=== PATIENT | male | born 1960 | race Caucasian/White ===

== ENCOUNTER 2020-11-19 11:40 | Observation (INO) | payer OTHER ==
[~2020-11-19] VITALS: Ht 182.9 cm; Wt 96.7 kg
[2020-11-19 12:21] LABS: BASOPHILS ABSOLUTE AUTO 0.08 K/mm3 (0.00-0.23); BASOPHILS PERCENT AUTO 1 % (0-2); EOSINOPHILS ABSOLUTE AUTO 0.12 K/mm3 (0.00-0.68); EOSINOPHILS PERCENT AUTO 1 % (0-6); Hematocrit 50.6 % (37.0-53.0); Hemoglobin 16.7 g/dL (13.5-17.5); IMMATURE GRAN ABSOLUTE AUTO 0.01 K/mm3 (0.00-0.10); IMMATURE GRAN PERCENT AUTO 0 % (0-1); LYMPHOCYTES ABSOLUTE AUTO 2.45 K/mm3 (0.84-5.20); LYMPHOCYTES PERCENT AUTO 29 % (21-46); MONOCYTES ABSOLUTE AUTO 0.65 K/mm3 (0.16-1.47); MONOCYTES PERCENT AUTO 8 % (4-13); Mean Corpuscular HGB 31.1 pg (26.0-34.0); Mean Corpuscular Volume 94 fL (80-100); Mean Platelet Volume 11.4 fL (9.1-12.4); NEUTROPHILS ABSOLUTE AUTO 5.04 K/mm3 (1.96-9.15); NEUTROPHILS PERCENT AUTO 60 % (41-73); Platelet Count 154 K/mm3 (150-400); RDW Coefficient Variation 13.1 % (11.7-14.2); RDW Standard Deviation 45.1 fL (35.1-46.3); Red Blood Cell Count 5.37 M/mm3 (4.30-5.90); White Blood Cell Count 8.35 K/mm3 (4.00-11.30)
[2020-11-19 12:40] LABS: Alanine Aminotransfer (ALT/SGP 24 U/L (12-78); Albumin, Blood 3.6 g/dL (3.4-5.0); Albumin/Globulin Ratio 0.9 (0.8-1.8); Alk Phos 101 U/L (50-136); Anion Gap 3 mmol/L (6-16); Aspartate Aminotrans (AST/SGOT 12 U/L (12-37); Bilirubin, Total 0.7 mg/dL (0.1-1.0); Blood Urea Nitrogen 12 mg/dL (8-24); Bun/Creatinine Ratio 9.6 (12.0-20.0); CO2, Blood 32 mmol/L (21-32); Calcium, Blood 9.3 mg/dL (8.5-10.1); Chloride, Blood 105 mmol/L (98-108); Creatinine, Blood 1.25 mg/dL (0.60-1.20); Globulin, Blood 4.1 g/dL (2.2-4.0); Glomerular Filtration Rate >60 (60-); Glucose, Blood 122 mg/dL (70-99); Potassium, Blood 3.7 mmol/L (3.5-5.5); Sodium, Blood 140 mmol/L (136-145); Total Protein, Blood 7.7 g/dL (6.4-8.2)
[2020-11-19 13:10] LABS: Prothrombin Time Results 10.8 Sec (9.7-11.5)
--- NOTE | 2020-11-19 19:22 | NUR ---
a+o, not appropriatly placed in back room but very nice to work with, bp very high but pt states it is where he expects it to be, dr aware and working with pt to develop a plan, call light in reach, no acute changes noted during shift
--- NOTE | 2020-11-19 21:59 | NUR ---
BP: 176/106 AND IV APRESOLINE 10 MG GIVEN FOR SBP >170 PER EMAR BP: 149/84 ON RECHECK
--- NOTE | 2020-11-20 03:23 | NUR ---
SHIFT SUMMARY PATIENT HAD NO ACUTE CHANGES OBSERVED. ONE ASSIST W/FWW TO BATHROOM WITH RIGHT SIDE WEAKNESS. CALL CENTER RN STRONG AND EQUAL. PEDAL PUSH STRONG ON LEFT LEG AND WEAKER ON RIGHT LEG SIDE. PUPILS EQUAL AND REACTIVE. BP ELEVATED 175/106 AND IV APRESOLINE 10 MG GIVEN PER EMAR FOR SBP >170. BP RECHECK: 149/84. DENIES CHEST PAIN, SOB, AND N/V. PIV REMAINS INTACT. WATCHED TV FIRST PART OF SHIFT. COOPERATIVE WITH CARE. CALL LIGHT IN REACH. BED IN LOWEST POSITION. WILL CONTINUE TO MONITOR UNTIL DAY SHIFT NURSE ASSUMES CARE.
[2020-11-20 06:43] LABS: Anion Gap 4 mmol/L (6-16); Blood Urea Nitrogen 16 mg/dL (8-24); Bun/Creatinine Ratio 13.1 (12.0-20.0); CO2, Blood 30 mmol/L (21-32); Chloride, Blood 108 mmol/L (98-108); Cholesterol 133 mg/dL (50-200); Creatinine, Blood 1.22 mg/dL (0.60-1.20); Glomerular Filtration Rate >60 (60-); Glucose, Blood 109 mg/dL (70-99); HDL Cholesterol 33 mg/dL (>39); LDL/HDL RATIO 2.4; Low Density Lipoprotein Chol 79 mg/dL (0-110); Potassium, Blood 3.7 mmol/L (3.5-5.5); Sodium, Blood 142 mmol/L (136-145); Triglycerides 107 mg/dL (30-160); Very Low Density Lipoprot Chol 21 mg/dL (6-32)
--- NOTE | 2020-11-20 13:07 | NUR ---
Echocardiogram using 9.0ml of agitated saline contrast performed.
[2020-11-20] MEDS ORDERED: CLOP75 PO (14:05)
[2020-11-20] MEDS ORDERED: ASPI81CH PO (14:05)
[2020-11-20] MEDS ORDERED: ATOR80 PO (14:05)
[2020-11-20] MEDS ORDERED: LISI20 PO (14:06)
[2020-11-20] MEDS ORDERED: NICO2 PO (14:06)
[2020-11-20] MEDS ORDERED: MELATONIN5 M1 PO (14:06)
[2020-11-20] MEDS ORDERED: NICO21TP TOP (14:07)
--- NOTE | 2020-11-20 15:45 | NUR ---
DISCHARGE SUMMARY IRLANDA LEFT WITH HIS GIRLFRIEND. THOROUGH EDUCATION WAS DONE ON STROKE PREVENTION AND S/S. PIV REMOVED, RX FAXED TO [facility]. INFO GIVEN ON [facility] PCP OFFICE FOR HIM TO ESTABLISH CARE. PT DECLINED WALKER/CANE PRESCRIPTION. WALKING IN ROOM WITH SBA, DECLINES WALKER OR CANE HERE ALSO. R SIDE HAS SOME RESIDUAL WEAKNESS BUT SENSATION IS INTACT. DENIED PAIN. PT WHEELED OUT BY BY STAFF
== END 2020-11-20 15:30 | disposition home or self-care (01) ==
LOC: ER 11:40 → MEDS 11:41
PROVIDERS: Family Medicine; Physician Assistant; ADMIT Internal Medicine
DX: I63.81 Other cerebral infarction due to occlusion or stenosis of small artery (principal); G81.91 Hemiplegia, unspecified affecting right dominant side; I10 Essential (primary) hypertension; F17.210 Nicotine dependence, cigarettes, uncomplicated; J44.9 Chronic obstructive pulmonary disease, unspecified; Z79.82 Long term (current) use of aspirin
CPT/HCPCS: 36415; 70450; 71045; 80048; 80053; 80061; 82947; 85025; 85610; 93005; 93010; 93306; 93880; 94760; 96372; 96374; 97112; 97162; 99285-25; 99406; A9270; G0378; J0360; J1650

== ENCOUNTER → 2021-09-19 | Outpatient (CLI) | payer OTHER ==
[~2021-09-19] MED LIST: ASPI81CH PO; ATOR80 PO; CLOP75 PO; LISI20 PO; MELATONIN5 M1 PO; NICO2 PO; NICO21TP TOP
== END | disposition home or self-care (01) ==
LOC: LAB SHORT 16:17
PROVIDERS: Nurse Practitioner Family
DX: N52.9 Male erectile dysfunction, unspecified (principal); R73.9 Hyperglycemia, unspecified
CPT/HCPCS: 83036; G0103

== ENCOUNTER 2021-10-03 03:30 | Inpatient (IN) | payer OTHER ==
[~2021-10-03] VITALS: Ht 182.9 cm; Wt 100.1 kg
[2021-10-03 03:55] LABS: BASOPHILS ABSOLUTE AUTO 0.09 K/mm3 (0.00-0.23); BASOPHILS PERCENT AUTO 1 % (0-2); EOSINOPHILS ABSOLUTE AUTO 0.15 K/mm3 (0.00-0.68); EOSINOPHILS PERCENT AUTO 2 % (0-6); Hematocrit 43.6 % (37.0-53.0); Hemoglobin 14.8 g/dL (13.5-17.5); IMMATURE GRAN ABSOLUTE AUTO 0.02 K/mm3 (0.00-0.10); IMMATURE GRAN PERCENT AUTO 0 % (0-1); LYMPHOCYTES ABSOLUTE AUTO 3.45 K/mm3 (0.84-5.20); LYMPHOCYTES PERCENT AUTO 34 % (21-46); MONOCYTES ABSOLUTE AUTO 0.64 K/mm3 (0.16-1.47); MONOCYTES PERCENT AUTO 6 % (4-13); Mean Corpuscular HGB 30.1 pg (26.0-34.0); Mean Corpuscular HGB Conc 33.9 g/dL (31.5-36.5); Mean Corpuscular Volume 89 fL (80-100); Mean Platelet Volume 11.4 fL (9.1-12.4); NEUTROPHILS ABSOLUTE AUTO 5.91 K/mm3 (1.96-9.15); NEUTROPHILS PERCENT AUTO 58 % (41-73); Platelet Count 169 K/mm3 (150-400); RDW Coefficient Variation 13.3 % (11.7-14.2); RDW Standard Deviation 43.6 fL (35.1-46.3); Red Blood Cell Count 4.92 M/mm3 (4.30-5.90); White Blood Cell Count 10.26 K/mm3 (4.00-11.30)
[2021-10-03 04:08] LABS: Alanine Aminotransfer (ALT/SGP 24 U/L (12-78); Albumin, Blood 3.6 g/dL (3.4-5.0); Alk Phos 68 U/L (50-136); Anion Gap 7 mmol/L (6-16); Aspartate Aminotrans (AST/SGOT 19 U/L (12-37); Bilirubin, Total 0.3 mg/dL (0.1-1.0); Blood Urea Nitrogen 14 mg/dL (8-24); Bun/Creatinine Ratio 12.8 (12.0-20.0); CHOL/HDL RATIO 4.5; CO2, Blood 29 mmol/L (21-32); Chloride, Blood 105 mmol/L (98-108); Cholesterol 145 mg/dL (50-200); Creatinine, Blood 1.09 mg/dL (0.60-1.20); Globulin, Blood 3.5 g/dL (2.2-4.0); Glomerular Filtration Rate >60 (60-); Glucose, Blood 143 mg/dL (70-99); HDL Cholesterol 32 mg/dL (>39); LDL/HDL RATIO 2.6; Low Density Lipoprotein Chol 82 mg/dL (0-110); Magnesium, Blood 2.1 mg/dL (1.6-2.4); Potassium, Blood 3.4 mmol/L (3.5-5.5); Sodium, Blood 141 mmol/L (136-145); Total Protein, Blood 7.1 g/dL (6.4-8.2); Triglycerides 154 mg/dL (30-160); Very Low Density Lipoprot Chol 30 mg/dL (6-32)
[2021-10-03] MEDS ORDERED: ASPIR 8181 M1 PO (04:13)
[2021-10-03] MEDS ORDERED: TADA10TA (06:37)
--- NOTE | 2021-10-03 07:25 | NUR ---
SUMMARY. 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 PT C/O MILD NAUSEA, ORDER OBTAINED FROM DR. VERGARA FOR ZOFRAN PRN, NONE GIVEN. VS STABLE. LUNGS CLEAR IN ALL BROUSSARD, BREATHING EVEN AND UNLABORED. CV SINUS/SINUS NIKKI, PULSES PRESENT AND EQUAL, PT DENIES ANY CHEST PAIN. ABDOMEN SOFT/NONTENDER. PT HAS R/ANGIO-SEAL AT GROIN ACCESS SITE FROM DIELECTRIC TESTING MACHINE OPERATOR, NO BLEEDING/SWELLING NOTED. NO ACUTE NEEDS NOTED. DR. GILL STATED NO NITRO FOR 72 HOURS DUE TO PT TAKING CIALIS LAST NIGHT, NURSE NOTIFY PUT IN CHART. STAT EKG DONE POST PROCEDURE. NO ACUTE NEEDS, REPORT GIVEN TO DAYSHIFT RN.
--- NOTE | 2021-10-03 08:00 | NUR ---
ASSUMED CARE OF PT PT RESTING ON BED, S/P ANGIO W/ STENT PLACEMENT W/ R. GROIN ACCESS ANGIOSEAL. GROIN IS SOFT W/ SMALL LUMP AT INSERTION SITE. STABLE ON HANDOFF. PT DENIES ANY CHEST PAIN. SINUS NIKKI ON THE MONITOR. VITALS STABLE. CARE PLAN DISCUSSED WITH PT. ALL QUESTIONS ANSWERED. CALL LIGHT IN REACH.
--- NOTE | 2021-10-03 11:58 | NUR ---
REASSESSMENT PT STOOD AT BEDSIDE WITH NO ASSISTANCE. DENIES ANY CHEST PAIN. RIGHT GROIN ACCESS REMAINS STABLE. NO ACUTE CHANGES FROM PREVIOUS ASSESSMENT. SINUS NIKKI ON MONITOR WHEN PT IS SLEEPING, SINUS RHYTHM WHEN AWAKE. VITALS REMAIN STABLE.
[2021-10-03] MEDS ORDERED: AMLODIPINE BESY10 MG PO (15:06)
[2021-10-03] MEDS ORDERED: OMEP20ER PO (15:07)
[2021-10-03] MEDS ORDERED: LOSA50 PO (15:07)
[2021-10-03] MEDS ORDERED: HYDCHL25 PO (15:07)
--- NOTE | 2021-10-03 16:17 | NUR ---
REASSESSMENT PT BP'S HAS BEEN TRENDING UPWARDS. DISCUSSED CARE WITH DR. KENDALL MEDChaim RESTARTED AND PRN MEDICATION AVAILABLE NOW. PT CONTINUES TO DENY ANY CHEST PAIN. ABLE TO REPOSITION SELF. SINUS NIKKI ON THE MONITOR. OTHER VITALS REMAIN STABLE. PT WAS STATUS CHANGED TO PCU. CALL LIGHT REMAINS IN REACH OF PT.
--- NOTE | 2021-10-03 18:43 | NUR ---
SHIFT SUMMARY PT ALERT AND ORIENTED x4, CALM AND COOPERATIVE. PT HAS DENIED CHEST PAIN ALL DAY. RIGHT GROIN SITE STABLE WITH NO CHANGES. ANGIOSEAL CLOSURE. PT AMBULATED IN ROOM WITH NO DIFFICULTIES TODAY. BP STARTED TO TREND UPWARDS, BUT DID IMPROVE. HOME MEDS WERE STARTED BY . MONITOR HAS SHOWN SINUS NIKKI, OTHER VITALS HAVE REMAINED STABLE. PT WAS MADE PCU STATUS THIS AFTERNOON.
[2021-10-04 03:35] LABS: Hematocrit 40.6 % (37.0-53.0); Hemoglobin 13.5 g/dL (13.5-17.5); Mean Corpuscular HGB 29.9 pg (26.0-34.0); Mean Corpuscular HGB Conc 33.3 g/dL (31.5-36.5); Mean Corpuscular Volume 90 fL (80-100); Mean Platelet Volume 10.8 fL (9.1-12.4); Platelet Count 146 K/mm3 (150-400); RDW Coefficient Variation 13.6 % (11.7-14.2); RDW Standard Deviation 45.1 fL (35.1-46.3); Red Blood Cell Count 4.52 M/mm3 (4.30-5.90); White Blood Cell Count 7.55 K/mm3 (4.00-11.30)
[2021-10-04 03:53] LABS: Anion Gap 8 mmol/L (6-16); Blood Urea Nitrogen 15 mg/dL (8-24); Bun/Creatinine Ratio 15.2 (12.0-20.0); CHOL/HDL RATIO 4.2; CO2, Blood 25 mmol/L (21-32); Calcium, Blood 8.4 mg/dL (8.5-10.1); Chloride, Blood 108 mmol/L (98-108); Cholesterol 130 mg/dL (50-200); Creatinine, Blood 0.99 mg/dL (0.60-1.20); Glomerular Filtration Rate >60 (60-); Glucose, Blood 107 mg/dL (70-99); HDL Cholesterol 31 mg/dL (>39); LDL/HDL RATIO 2.4; Low Density Lipoprotein Chol 74 mg/dL (0-110); Potassium, Blood 3.4 mmol/L (3.5-5.5); Sodium, Blood 141 mmol/L (136-145); Triglycerides 125 mg/dL (30-160); Very Low Density Lipoprot Chol 25 mg/dL (6-32)
--- NOTE | 2021-10-04 06:48 | NUR ---
NO ACUTE EVENTS OVERNIGHT. PT DENIED CHEST PAIN OR PRESSURE THROUGHOUT THE SHIFT. RIGHT FEMORAL ACCESS SITE SOFT, NO HEMATOMA, STRONG PULSE, DISTAL PULSES AND SENSATION INTACT. PT COMPLAINS OF SLIGHT SORENESS AT SITE WITH COUGH. EDUCATON PROVIDED REGARDINGM THE FOLLOWIN) LIMB & ACTIVITY RESTICTIONS POST HEART CATHETERIZATION. 2) NEW MEDICATIONS AND IMPORTANCE OF COMPLIANCE WITH SAID MEDICATIONS. 3) CARDIAC RISK FACTORS 4) RISKS ASSOCIATED WITH HYPERTENSION PT UP INDEPENDENTLY IN THE ROOM. RESPOSITIONS SELF IN BED. VOIDING URINE. BOWEL MOVEMENTS x 2 OVERNIGHT.
--- NOTE | 2021-10-04 07:51 | NUR ---
BEGINNING OF SHIFT Assumed care of pt at 0700. Report received from Nahomy GIFFORD. Pt A&O x 4. Answers questions. Follows commands. Verbalizes needs. Pleasant and cooperative with care. SpO2 90% or greater room air. SB per monitor, rate 51. BP stable. Right femoral artery access site covered with tegaderm. Per report pt has angioseal. Color, sensation, pulses, capillary refill equal BLE.
[2021-10-04] MEDS ORDERED: Nitrostat0.3 MG SL (12:29)
--- NOTE | 2021-10-04 14:05 | NUR ---
Pt discharged from unit at 1310. Medications faxed to [facility] pharmacy in [facility] per pt request. Educated pt on medications and angiogram site care. Pt has stent card. Educated on daily weights and heart healthy diet. Also provided tobacco cessation information. Pt verbalizes understanding of education provided. IV access removed. Pt escorted to patient entrance accompanied by this RN.
== END 2021-10-04 13:33 | disposition home or self-care (01) | DRG 247 ==
LOC: ER 03:30 → ICUE 03:36 → ICUW 03:36 → ICUE 04:43
PROVIDERS: Student in an Organized Health Care Education/Training Program; ADMIT Internal Medicine Cardiovascular Disease
PROC: 027034Z Dilation of Coronary Artery, One Artery with Drug-eluting Intraluminal Device, Percutaneous Approach (ICD-10-PCS; principal; 2021-10-03)
PROC: B2151ZZ Fluoroscopy of Left Heart using Low Osmolar Contrast (ICD-10-PCS; 2021-10-03)
PROC: B2111ZZ Fluoroscopy of Multiple Coronary Arteries using Low Osmolar Contrast (ICD-10-PCS; 2021-10-03)
PROC: 4A023N7 Measurement of Cardiac Sampling and Pressure, Left Heart, Percutaneous Approach (ICD-10-PCS; 2021-10-03)
DX: I21.19 ST elevation (STEMI) myocardial infarction involving other coronary artery of inferior wall (principal); I10 Essential (primary) hypertension; F17.210 Nicotine dependence, cigarettes, uncomplicated; R73.03 Prediabetes; Z86.73 Personal history of transient ischemic attack (TIA), and cerebral infarction without residual deficits; Z88.0 Allergy status to penicillin; Z79.02 Long term (current) use of antithrombotics/antiplatelets; Z79.82 Long term (current) use of aspirin
CPT/HCPCS: 36415; 71045; 80048; 80053; 80061; 83735; 84484; 85025; 85027; 85347; 93005; 93010; 93306; 93458; 96374; 99152; 99153; 99285-25; A9270; C1725; C1760; C1769; C1874; C1887; C1894; C9606; J0360; J0461; J1644; J2250; J3010; J7030; J7040; Q9967

== ENCOUNTER → 2022-08-07 | Outpatient (CLI) | payer OTHER ==
[~2022-08-07] MED LIST changes: +AMLODIPINE BESY10 MG PO; +ASPIR 8181 M1 PO; +HYDCHL25 PO; +LOSA50 PO; +Nitrostat0.3 MG SL; +OMEP20ER PO; +TADA10TA
[2022-08-07 16:38] LABS: BASOPHILS PERCENT AUTO 2 % (0-2); EOSINOPHILS ABSOLUTE AUTO 0.21 K/mm3 (0.00-0.68); EOSINOPHILS PERCENT AUTO 3 % (0-6); Hematocrit 46.1 % (37.0-53.0); Hemoglobin 15.2 g/dL (13.5-17.5); IMMATURE GRAN ABSOLUTE AUTO 0.01 K/mm3 (0.00-0.10); IMMATURE GRAN PERCENT AUTO 0 % (0-1); LYMPHOCYTES PERCENT AUTO 37 % (21-46); MONOCYTES ABSOLUTE AUTO 0.61 K/mm3 (0.16-1.47); MONOCYTES PERCENT AUTO 9 % (4-13); Mean Corpuscular HGB 29.9 pg (26.0-34.0); Mean Corpuscular Volume 91 fL (80-100); Mean Platelet Volume 11.9 fL (9.1-12.4); NEUTROPHILS ABSOLUTE AUTO 3.32 K/mm3 (1.96-9.15); NEUTROPHILS PERCENT AUTO 49 % (41-73); Platelet Count 134 K/mm3 (150-400); RDW Coefficient Variation 13.2 % (11.7-14.2); RDW Standard Deviation 44.9 fL (35.1-46.3); Red Blood Cell Count 5.09 M/mm3 (4.30-5.90); White Blood Cell Count 6.75 K/mm3 (4.00-11.30)
[2022-08-07 18:46] LABS: Alanine Aminotransfer (ALT/SGP 25 U/L (12-78); Albumin, Blood 3.5 g/dL (3.4-5.0); Albumin/Globulin Ratio 1.1 (0.8-1.8); Alk Phos 78 U/L (50-136); Anion Gap 2 mmol/L (6-16); Aspartate Aminotrans (AST/SGOT 12 U/L (12-37); Bilirubin, Total 0.6 mg/dL (0.1-1.0); Blood Urea Nitrogen 20 mg/dL (8-24); CHOL/HDL RATIO 2.6; CO2, Blood 32 mmol/L (21-32); Calcium, Blood 9.3 mg/dL (8.5-10.1); Chloride, Blood 109 mmol/L (98-108); Cholesterol 109 mg/dL (50-200); Globulin, Blood 3.3 g/dL (2.2-4.0); Glucose, Blood 116 mg/dL (70-99); HDL Cholesterol 42 mg/dL (>39); LDL/HDL RATIO 1.2; Low Density Lipoprotein Chol 52 mg/dL (0-110); Potassium, Blood 3.9 mmol/L (3.5-5.5); Sodium, Blood 143 mmol/L (136-145); Total Protein, Blood 6.8 g/dL (6.4-8.2); Triglycerides 76 mg/dL (30-160); Very Low Density Lipoprot Chol 15 mg/dL (6-32)
[2022-08-07 19:05] LABS: Bun/Creatinine Ratio 16.8 (12.0-20.0); Creatinine, Blood 1.19 mg/dL (0.60-1.20); Glomerular Filtration Rate 69 (60-)
== END | disposition home or self-care (01) ==
LOC: LAB SHORT 12:00
PROVIDERS: Nurse Practitioner Family
DX: E78.2 Mixed hyperlipidemia (principal); E55.9 Vitamin D deficiency, unspecified; I10 Essential (primary) hypertension
CPT/HCPCS: 80053; 80061; 82306; 84443; 85025